=== PATIENT | male | born 1965 | race Caucasian/White ===

== ENCOUNTER 2021-02-28 11:45 | Emergency (ER) | payer BC ==
[~2021-02-28] VITALS: Ht 172.7 cm; Wt 86.2 kg
[2021-02-28 11:51] VITALS: BP 158/90
--- NOTE | 2021-02-28 11:51 | NUR ---
TO BED AMBULATORY
--- NOTE | 2021-02-28 12:02 | NUR ---
RAD AT BEDSIDE
--- NOTE | 2021-02-28 12:10 | NUR ---
55 Y/O MALE C/O BILATERAL FOOT PAIN AND SWELLING SINCE SATURDAY. PT DENIES INJURIES/FALLS. PT STATES HE IS ON HIS FEET AT WORK A LOT. PT RATES PAIN 5/10 THAT HE DESCRIBES SHARP AND RADIATES FROM BILATERAL LEGS TO GROIN AREA. PT STATES THAT PAIN IS WORSE WITH WALKING. CAP REFILL <3 SECONDS, FULL ROM AND SENSATION WITH BILATERAL PITTING EDEMA +2. PT AMBULATORY. PT DENIES CP/SOB. PT A/O X4 WITH EVEN AND UNLABORED RESPIRATIONS. PT SITTING IN CHAIR PMH:DENIES NKDA
--- NOTE | 2021-02-28 12:13 | NUR ---
JONNIE MERRILL AT BEDSIDE EVALUATING PT
[2021-02-28 13:26] LABS: CREATININE 0.8 mg/dL (0.6-1.3); TOTAL BILIRUBIN 0.6 mg/dL (0.0-1.0)
[2021-02-28] MEDS ORDERED: KETOROLAC 30 MG/ML VIAL IM ONE (13:30)
[2021-02-28] MEDS ORDERED: IBUP-2213 PO (13:35)
--- NOTE | 2021-02-28 13:41 | NUR ---
PT PLACED IN RIGHT ORTHO-GLASS SHORT LEG SPLINT. WRAPPED WITH 3" CRUZITO WRAPS X2, CMS WNL BEFORE AND AFTER. PT ALSO GIVEN CRTUCHES THAT WERE ADJUSTED TO PT SIZE AND HEIGHT. PT STATES THAT THEY ALL READY KNOW HOW TO USE CRUTCHES AND SHOWED PROPER DEMENSTRATION OF CRUTCHE USAGE. PA AND RN NOTIFIED
[2021-02-28 13:53] LABS: BASOPHILS # (AUTO) 0.1 K/uL (0.00-0.22); BASOPHILS % (AUTO) 0.8 % (0.0-2.0); EOSINOPHILS # (AUTO) 0.4 K/uL (0-0.4); EOSINOPHILS % (AUTO) 5.8 % (0.0-4.0); HEMOGLOBIN 10.4 g/dL (12.0-18.0); LYMPHOCYTES # (AUTO) 1.1 K/uL (2.0-11.5); LYMPHOCYTES % (AUTO) 15.1 % (20.5-51.1); MEAN CORPUSCULAR HEMOGLOBIN 35 pg (27-31); MEAN CORPUSCULAR HGB CONC 35 g/dL (33-37); MEAN CORPUSCULAR VOLUME 101.5 fL (80-94); MONOCYTES # (AUTO) 0.4 K/uL (0.8-1.0); MONOCYTES % (AUTO) 6.1 % (1.7-9.3); NEUTROPHILS # (AUTO) 5.3 K/uL (1.8-7.7); NEUTROPHILS % (AUTO) 72.2 % (42.2-75.2); PLATELET COUNT (AUTO) 174 K/uL (140-450); RED BLOOD CELL COUNT(AUTO) 2.96 MIL/uL (4.20-6.10); RED CELL DISTRIBUTION WIDTH 18.6 % (11.6-13.7); WHITE BLOOD COUNT (AUTO) 7.3 K/uL (4.8-10.8)
[2021-02-28 13:56] VITALS: BP 158/90
--- NOTE | 2021-02-28 13:57 | NUR ---
Patient discharged with v/s stable. Written and verbal after care instructions ABOUT MEDICATION AND METATARSAL FRACTURE given and explained. Patient alert, oriented and verbalized understanding of instructions. Ambulatory with steady gait NWITH CRUTCHES. All questions addressed prior to discharge. ID band removed. Patient advised to follow up with PMD. Rx of IBUPROFEN given. Patient educated on indication of medication including possible reaction and side effects. Opportunity to ask questions provided and answered.
== END 2021-02-28 13:57 | disposition home or self-care (01) ==
LOC: MED 11:45
DX: S92.354A Nondisplaced fracture of fifth metatarsal bone, right foot, initial encounter for closed fracture (principal); M19.072 Primary osteoarthritis, left ankle and foot; M19.071 Primary osteoarthritis, right ankle and foot; Z79.1 Long term (current) use of non-steroidal anti-inflammatories (NSAID); X58.XXXA Exposure to other specified factors, initial encounter; Y92.89 Other specified places as the place of occurrence of the external cause; Y93.89 Activity, other specified; Y99.8 Other external cause status
CPT/HCPCS: 29515; 36415; 71045; 73630; 80053; 83880; 85025; 96372; 99284; J1885

== ENCOUNTER 2022-04-03 09:16 | Emergency (ER) | payer BC ==
[~2022-04-03] VITALS: Ht 175.3 cm; Wt 84.4 kg
[~2022-04-03 09:16] MED LIST: IBUP-2213 PO
[2022-04-03 09:36] VITALS: BP 170/103
--- NOTE | 2022-04-03 09:40 | NUR ---
PT TO WAIT IN LOBBY.
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
[2022-04-03] MEDS ORDERED: PROCHLORPERAZINE 5 MG TAB PO ONE (11:15)
[2022-04-03] MEDS ORDERED: KETOROLAC 30 MG/ML VIAL IM ONE (11:15)
[2022-04-03] MEDS ORDERED: IBUP-2213 PO (11:26)
[2022-04-03] MEDS ORDERED: DIPH25TA53 PO (11:26)
[2022-04-03] MEDS ORDERED: PROC-66 PO (11:26)
[2022-04-03 12:11] VITALS: BP 185/126
--- NOTE | 2022-04-03 12:16 | NUR ---
PER [facility] PT OK TO BE D/C BP 186/126.
--- NOTE | 2022-04-03 12:17 | NUR ---
Patient discharged with v/s stable. Written and verbal after care instructions given FOR MIGRAINE HEADACHE and explained. Patient alert, oriented and verbalized understanding of instructions. Ambulatory with steady gait. All questions addressed prior to discharge. ID band removed. Patient advised to follow up with PMD. Rx of HYDROCHLOROTIAZIDE, COMPAZINE, BENADRYL, AND IBUPROFEN given. Patient educated on indication of medication including possible reaction and side effects. Opportunity to ask questions provided and answered.
== END 2022-04-03 12:15 | disposition home or self-care (01) ==
LOC: MED 09:16
DX: R51.9 Headache, unspecified (principal); Z79.899 Other long term (current) drug therapy
CPT/HCPCS: 70450; 96372; 99284; J1885

== ENCOUNTER 2024-01-18 12:27 | Emergency (ER) | payer BC ==
[~2024-01-18] VITALS: Ht 175.3 cm; Wt 75.3 kg
[~2024-01-18 12:27] MED LIST changes: +DIPH25TA53 PO; +PROC-66 PO
[2024-01-18 12:42] VITALS: BP 149/97; PULSE 91; RESP 20; TEMP 97.9; O2SAT 98
[2024-01-18] MEDS: LIDOCAINE 5% 1 EA PATCH TP ONE (13:23)
[2024-01-18] MEDS: KETOROLAC 30 MG/ML VIAL IM ONE (13:24)
[2024-01-18 14:04] LABS: APPEARANCE,URINE CLEAR (CLEAR); BILIRUBIN,URINE NEGATIVE (NEGATIVE); BLOOD, URINE NEGATIVE (NEGATIVE); COLOR,URINE YELLOW (YELLOW); LEUKOCYTE ESTERASE ,URINE NEGATIVE (NEGATIVE); NITRITE, URINE NEGATIVE (NEGATIVE); PROTEIN,URINE NEGATIVE (NEGATIVE); UGLUCOSE NEGATIVE (NEGATIVE); UROBILINOGEN,URINE 0.2 EU/dL (0.2 - 1)
[2024-01-18] MEDS ORDERED: METH-1681 PO (14:11)
[2024-01-18] MEDS ORDERED: NAPR-337 PO (14:11)
[2024-01-18] MEDS ORDERED: LID5T TP (14:11)
[2024-01-18 14:28] VITALS: BP 159/97; PULSE 80; RESP 22; TEMP 97.9; O2SAT 98
== END 2024-01-18 14:28 | disposition home or self-care (01) ==
LOC: MED 12:27
DX: M54.50 Low back pain, unspecified (principal); M25.512 Pain in left shoulder; R03.0 Elevated blood-pressure reading, without diagnosis of hypertension; M79.10 Myalgia, unspecified site; Z79.899 Other long term (current) drug therapy
CPT/HCPCS: 81003; 96372; 99283; J1885